=== PATIENT | female | born 1990 | race African-American/Black ===

== ENCOUNTER 2020-12-31 22:24 | Emergency (ER) | payer MEDICAID ==
[~2020-12-31] VITALS: Ht 157.5 cm; Wt 69.0 kg
[2020-12-31] MEDS ORDERED: ACETAMINOPHEN 325MG TABLET PO ONE (23:30)
[2020-12-31 23:59] LABS: BASOPHILS % 0.8 % (0.0-2.0); HEMOGLOBIN. 11.4 g/dL (12.0-16.0); LYMPHOCYTES % 33.9 % (20.0-50.0); MEAN CORPUSCULAR HEMOGLOBIN 31.1 pg (28.0-32.0); MEAN CORPUSCULAR VOLUME 90.4 fL (81.0-99.0); MEAN PLATELET VOLUME 7.8 fl (7.4-10.4); MONOCYTES % 6.8 % (2.0-8.0); NEUTROPHILS % 57.5 % (40.0-76.0); PLATELET 243 x1000/uL (130-400); RED BLOOD CELL COUNT 3.65 mill/uL (4.2-5.4); RED CELL DISTRIBUTION WIDTH 14.3 % (11.6-14.6)
[2021-01-01 00:07] LABS: CHLORIDE 108 mEq/L (98-107)
[2021-01-01 00:32] LABS: B-HCG QUANTITATIVE 106656 mIU/mL (<3)
[2021-01-01] MEDS ORDERED: METO-293 MT (01:39)
[2021-01-01 02:01] VITALS: BP 110/68
== END 2021-01-01 02:03 | disposition home or self-care (01) ==
LOC: ER 22:24
DX: O20.0 Threatened abortion (principal); Z3A.08 8 weeks gestation of pregnancy
CPT/HCPCS: 36415; 76801; 80053; 81025; 84702; 85025; 86850; 86900; 99284